=== PATIENT | female | born 2000 | race Caucasian/White ===

== ENCOUNTER 2019-03-02 12:00 | Emergency (ER) | payer BC, MEDICAID ==
[~2019-03-02] VITALS: Ht 165.1 cm; Wt 60.2 kg
[2019-03-02 12:10] VITALS: BP 129/84
--- NOTE | 2019-03-02 12:27 | NUR ---
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
--- NOTE | 2019-03-02 13:05 | NUR ---
MD IS AT THE BEDSIDE TO ASSESS
--- NOTE | 2019-03-02 13:26 | NUR ---
PT TO THE RESTROOM WITH A STEADY GAIT.
[2019-03-02] MEDS ORDERED: SODIUM CHLORIDE 0.9% 1,000ML IVBOLUS ONE (13:30)
[2019-03-02] MEDS ORDERED: SODIUM CHLORIDE FLUSH 10ML SYR IVF ONE (13:30)
[2019-03-02] MEDS ORDERED: ONDANSETRON ODT 4 MG PO ONE (13:30)
[2019-03-02 13:47] LABS: BASOPHILS # (AUTO) 0.02 x10^3/uL (0-0.3); BASOPHILS % (AUTO) 0 % (0-1); EOSINOPHILS % (AUTO) 0 % (1-7); LYMPHOCYTES # (AUTO) 2.33 x10^3/uL (1-6.1); LYMPHOCYTES % (AUTO) 17 % (22-44); MD NO; MEAN CORPUSCULAR HEMOGLOBIN 32.6 pg (27.0-34.8); MEAN CORPUSCULAR HGB CONC 33.7 g/dL (32.4-35.8); MEAN CORPUSCULAR VOLUME 96.8 fL (80-100); MEAN PLATELET VOLUME 8.3 fL (7.4-10.4); MONOCYTES # (AUTO) 0.81 x10^3/uL (0-1.4); MONOCYTES % (AUTO) 6 % (2-9); NEUTROPHILS # (AUTO) 10.43 x10^3/uL (1.8-8.0); NEUTROPHILS % (AUTO) 77 % (42-75); PLATELET COUNT 292 x10^3/uL (130-400); RED BLOOD COUNT 4.35 x10^6/uL (3.82-5.3); RED CELL DISTRIBUTION WIDTH 12.2 % (9.6-15.2)
[2019-03-02 13:48] LABS: MICROSCOPIC AUTO
[2019-03-02 13:50] LABS: CULTURE INDICATED? YES
--- NOTE | 2019-03-02 14:03 | NUR ---
I REDREW CHEM PANEL FOR PHLEBOTOMY. SENT TO THE LAB FOR ANALYSIS.
[2019-03-02 14:19] LABS: ALANINE AMINOTRANSFERASE 17 U/L (12-78); ALBUMIN 3.4 g/dL (3.4-5.0); ANION GAP 12 mmol/L (5-15); CALCIUM 8.5 mg/dL (8.5-10.1); CHLORIDE 111 mmol/L (98-107); CREATININE 0.35 mg/dL (0.55-1.02)
[2019-03-02 14:22] LABS: ALKALINE PHOSPHATASE 57 U/L (45-117); BILIRUBIN,TOTAL 0.5 mg/dL (0.2-1.0); TOTAL PROTEIN 6.5 g/dL (6.4-8.2)
[2019-03-02] MEDS ORDERED: CEFDINIR 300 MG CAPSULE PO ONE (14:30)
[2019-03-02] MEDS ORDERED: CEFDINIR 300 MG CAPSULE ONE (14:33)
--- NOTE | 2019-03-02 14:46 | NUR ---
Rickie sepulveda in [facility] - 03/02/19 at 1446 by TERRENCE TASK RN: RECEIVED BEDSIDE REPORT FROM CR NASSAR.
--- NOTE | 2019-03-02 14:47 | NUR ---
TASK RN: RECEIVED BEDSIDE REPORT FROM CR NASSAR.
--- NOTE | 2019-03-02 15:17 | NUR ---
TASK RN: PT DENIES ABD PAIN. PIV D/C WITH TIP INTACT. PRESSURE DRESSING APPLIED
--- NOTE | 2019-03-02 15:24 | NUR ---
TASK RN: Patient/Caregiver given discharge instructions and they have confirmed that they understand the instructions. Patient ambulatory with steady gait. PT LEFT WITH ALL PERSONAL BELONGINGS.
== END 2019-03-02 15:25 | disposition home or self-care (01) ==
LOC: ED 15:15
DX: O23.12 Infections of bladder in pregnancy, second trimester (principal); O21.9 Vomiting of pregnancy, unspecified; Z3A.14 14 weeks gestation of pregnancy
CPT/HCPCS: 36415; 80053; 81001; 85025; 87086; 96360; 99283; J7030